=== PATIENT | male | born 1965 | race Caucasian/White ===

== ENCOUNTER 2020-01-21 07:14 | Outpatient (CLI) | payer OTHER, SELFPAY ==
[2020-01-21 07:50] LABS: Hemoglobin A1C 5.6 % (<5.7)
[2020-01-21 08:29] LABS: Alanine Aminotransferase 48 U/L (16-63); Alkaline Phosphatase 42 U/L (46-116); Anion Gap 12.2 mmol/L (7-16); Aspartate Amino Transferase 34 U/L (15-37); Bilirubin,Total 0.7 mg/dL (0.00-1.00); Blood Urea Nitrogen 15 mg/dL (7-18); Calcium 9.2 mg/dL (8.5-10.1); Carbon Dioxide 30 mmol/L (21-32); Chloride 105 mmol/L (98-108); Cholesterol 153 mg/dL (0-200); Estimated Glomerular Filt Rate 60; Glucose 105 mg/dL (70-99); HDL Direct 26 mg/dL (40-60); LDL Cholesterol Calculated 97 mg/dL (<130); Osmolality Calculated 296 mOsm/kg (285-295); Potassium 4.2 mmol/L (3.5-5.1); Sodium 143 mmol/L (136-145); Triglycerides 148 mg/dL (0-150)
== END 2020-01-21 07:15 | disposition home or self-care (01) ==
PROVIDERS: PCP Family Medicine; Visit Provider Family Medicine
DX: E88.81 Metabolic syndrome and other insulin resistance (principal); E78.1 Pure hyperglyceridemia; Z13.220 Encounter for screening for lipoid disorders
CPT/HCPCS: 36415; 80053; 80061; 83036

== ENCOUNTER 2021-09-01 11:08 | Outpatient (CLI) | payer OTHER, SELFPAY ==
[2021-09-01 12:31] LABS: SARS-CoV-2 RNA PCR Positive (Negative)
== END 2021-09-01 11:09 | disposition home or self-care (01) ==
LOC: CHSLAB 11:10
PROVIDERS: PCP Family Medicine; Visit Provider Family Medicine
DX: U07.1 COVID-19 (principal); R68.83 Chills (without fever); R05.9 Cough, unspecified
CPT/HCPCS: C9803; U0003; U0005

== ENCOUNTER → 2021-10-03 12:41 | Outpatient (CLI) | payer OTHER, SELFPAY ==
--- NOTE | ~2021-10-03 | US_ITS ---
EXAMINATION: US abdomen limited EXAM DATE: 10/03/2021 13:03 INDICATION: R74.8 - Abnormal levels of other serum enzymes . TECHNIQUE: Multiple grayscale and Doppler images of the abdomen right upper quadrant were obtained (b y a technologist who performed the scan) and subsequently reviewed. There is no prior study for meño lópez. FINDINGS: The pancreatic head and body are normal in appearance. The pancreatic tail is not visualized. There is echogenic liver parenchyma with poor penetration, hepatic steatosis. There are no focal liver le sions identified. There is no evidence of intrahepatic biliary duct dilation. Portal venous flow w as seen in the hepatopedal, normal direction and has normal Doppler waveform. No right-sided hydrone phrosis. Common bile duct measures 4 mm, which is normal. The gallbladder wall is normal in thickness, with ex pected amount of distention. No sonographic evidence of pericholecystic fluid. Several gallbladder polyps suspected, largest measuring 8 mm. Technologist performing exam reports patient did not demon strate sonographic Wilson's sign. Please note that this sign is less reliable in patients who have r eceived pain medication. IMPRESSION: 1. Hepatic steatosis. 2. Gallbladder polyps; consider 6-12 month follow-up ultrasound. Reviewed, dictated and finalized at location A. [employer]ING SUPERVISOR
== END ==
PROVIDERS: PCP Family Medicine; Visit Provider Family Medicine
DX: R74.8 Abnormal levels of other serum enzymes (principal); K76.0 Fatty (change of) liver, not elsewhere classified; K82.4 Cholesterolosis of gallbladder
CPT/HCPCS: 76705

== ENCOUNTER 2022-09-03 05:58 | Day surgery (SDC) | payer OTHER, SELFPAY ==
[2022-08-20 10:06] VITALS: BMI 27.8
[2022-09-03 06:15] VITALS: BP 138/109; PULSE 78; RESP 16; TEMP 37.1; O2SAT 97
[2022-09-03] MEDS: LACTATED RINGERS 1,000 ML 150 ML IV CONT (06:25)
[2022-09-03 06:33] LABS: Glucose Point of Care 141 mg/dl (65-105)
--- NOTE | 2022-09-03 07:15 | P.PNAN_ITS ---
Anes - Initial Pre Proc Eval Procedure: Operation Date: 09/03/22 07:30 Proposed Procedures p Screening Colonoscopy - Olvin Gracia MD Date/Time: 09/03/22 07:15 Surgeon: Olvin Gracia MD Pre Op Diagnosis: Neoplasm Screening and Family HX Colon Cancer Patient Data Age: 57 Gender: M Height: 1.83 m Weight: 95.7 kg Allergies Allergy/AdvReac Type Severity Reaction Status Date / Time No Known Allergies Allergy Mild Verified 09/03/22 06:20 Home Medications Medication Instructions Recorded Confirmed Type metformin 500 mg tablet,extended 500 mg PO DAILY #90 tabs 12/22/21 09/03/22 Rx release 24 hr lisinopril 10 See Rx Instructions .Route 02/28/22 09/03/22 Rx mg-hydrochlorothiazide 12.5 mg .COMPLEX #90 tabs tablet rosuvastatin 5 mg tablet (Crestor) 5 mg PO .q hs #90 tabs 04/20/22 09/03/22 Rx metoprolol succinate 50 mg See Rx Instructions .Route 06/26/22 09/03/22 Rx tablet,extended release 24 hr .COMPLEX #90 tabs sodium,potassium,mag sulfates 17.5 See Rx Instructions PO .COMPLEX 07/10/22 09/03/22 Rx gram-3.13 gram-1.6 gram oral soln #354 mL (Suprep Bowel Prep Kit) Laboratory Tests 09/03/22 06:30 POC Capillary Glucose 141 mg/dl H mg/dl (65-105) Patient hx anesthesia problems: none Family hx anesthesia problems: none Results Review: All pre-operative results and documents have been reviewed as part of the pre- operative evaluation. [facility] Past Medical History Medical History Hepatic steatosis Migraine variant without intractability Overweight (BMI 25.0-29.9) Post-traumatic urethral stricture, male, meatal Surgical History Surgical History (Updated 09/03/22 @ 07:16 by Armani Virk MD) H/O colonoscopy Family History Family History Mother Patient's mother is , Onset Age: 69 Other Diabetes mellitus Family history of cardiovascular disease Malignant neoplasm of prostate Social History Social History Smoking status: Never smoker Alcohol intake: unknown Substance use: never Substance use type: does not use Living arrangements: with family Spiritual care concerns: No Anes - Eval Final PreProcedure Day of Procedure 09/03/22 07:15 Patient weight: overweight Heart: regular rate and rhythm Lungs: clear to auscultation Airway: Mallampati scale class II Neurological: alert and oriented Last oral intake: >/= 8 hours ASA classification: III Emergent: no Anesthetic plan: proceed Anesthesia type and monitoring: general GIVS and standard monitoring Results Review: All pre-operative results and documents have been reviewed as part of the pre- operative evaluation. Informed Consent: The patient's anesthetic plan and its attendant risks and benefits were discussed with the patient/family/POA. Questions were solicited and answers provided to the satisfaction of the patient/family/POA.
--- NOTE | 2022-09-03 07:29 | PM.HPGS ---
History of Present Illness History of Present Illness Consent: Risks, benefits, and alternatives have been discussed and questions answered. Patient agrees to proceed with procedure. Chief complaint: Neoplasm Screening and Family HX Colon Cancer Narrative: Matt Johnson is a 57 year old male Presents for screening colonoscopy. Patient's family history is significant his father had colon cancer. Patient reports that his current weight appetite and bowel movements are normal. Patient denies abdominal pain. He has had no bleeding. Previous colonoscopy 5 years ago was unremarkable. Review of Systems Review of Systems: Review of systems is noncontributory. [facility] Past Medical History Medical History Hepatic steatosis Migraine variant without intractability Overweight (BMI 25.0-29.9) Post-traumatic urethral stricture, male, meatal Surgical History Surgical History (Updated 09/03/22 @ 07:16 by Armani Virk MD) H/O colonoscopy Family History Family History Mother Patient's mother is , Onset Age: 69 Other Diabetes mellitus Family history of cardiovascular disease Malignant neoplasm of prostate Social History Social History Smoking status: Never smoker Alcohol intake: unknown Substance use: never Substance use type: does not use Living arrangements: with family Spiritual care concerns: No Meds Home Medications and Allergies Home Medications Medication Instructions Recorded Confirmed Type metformin 500 mg tablet,extended 500 mg PO DAILY #90 tabs 12/22/21 09/03/22 Rx release 24 hr lisinopril 10 See Rx Instructions .Route 02/28/22 09/03/22 Rx mg-hydrochlorothiazide 12.5 mg .COMPLEX #90 tabs tablet rosuvastatin 5 mg tablet (Crestor) 5 mg PO .q hs #90 tabs 04/20/22 09/03/22 Rx metoprolol succinate 50 mg See Rx Instructions .Route 06/26/22 09/03/22 Rx tablet,extended release 24 hr .COMPLEX #90 tabs sodium,potassium,mag sulfates 17.5 See Rx Instructions PO .COMPLEX 07/10/22 09/03/22 Rx gram-3.13 gram-1.6 gram oral soln #354 mL (Suprep Bowel Prep Kit) Allergies Allergy/AdvReac Type Severity Reaction Status Date / Time No Known Allergies Allergy Mild Verified 09/03/22 06:20 Vital Signs Vital Signs - 24 hr 09/03/22 06:15 Temperature 98.8 F Pulse Rate 78 Respiratory Rate 16 Blood Pressure 138/109 H Pulse Oximetry 97 Oxygen Delivery Room Air Exam Narrative: Physical exam reveals patient to be alert. Vital signs stable. HEENT exam is unremarkable. Patient is anicteric. Lungs are clear to auscultation and percussion. Heart is without murmur or extra sounds. Abdomen bowel sounds are present soft nontender with no organomegaly. Digital external rectal exam is normal. Assessment and Plan Assessment and plan (1) Family hx of colon cancer: Code(s): Z80.0 - Family history of malignant neoplasm of digestive organs Status: Acute Assessment and Plan: Patient's family history is significant his father had colon cancer. Plan for surveillance colonoscopy now and consider this at 5 year intervals in the future.
[2022-09-03 07:54] VITALS: BP 116/90; PULSE 71; RESP 16; O2SAT 97
[2022-09-03 08:04] VITALS: BP 119/82; PULSE 71; RESP 18; O2SAT 100
[2022-09-03 08:14] VITALS: BP 125/85; PULSE 72; RESP 20; O2SAT 100
--- NOTE | 2022-09-03 08:43 | WPDANESPN ---
Anes - Prog Note Post-Op Date/Time: 09/03/22 08:43 Cardiovascular status: normal Respiratory status: normal Airway patency: baseline Mental status: baseline Post-Op hydration status: normal Vital Signs: Last Vital Signs Temp 37.1 C 09/03/22 06:15 Pulse 72 09/03/22 08:14 Resp 20 09/03/22 08:14 BP 125/85 09/03/22 08:14 Pulse Ox 100 09/03/22 08:14 O2 Del Method Room Air 09/03/22 08:14 Pain Score (VAS): 0/10 I/O: Intake & Output 09/02/22 09/03/22 09/03/22 23:59 07:59 15:59 Intake Total 400 Balance 400 09/03/22 06:30 POC Capillary Glucose 141 H Patient Feedback: Patient satisfied with anesthetic care.
== END 2022-09-03 08:26 | disposition home or self-care (01) ==
PROVIDERS: PCP Family Medicine; Visit Provider Internal Medicine Gastroenterology
PROC: 0DJD8ZZ Inspection of Lower Intestinal Tract, Via Natural or Artificial Opening Endoscopic (ICD-10-PCS; CPT 45378; principal; 2022-09-03 07:30)
DX: Z80.0 Family history of malignant neoplasm of digestive organs (principal)
CPT/HCPCS: 45380

== ENCOUNTER 2022-09-03 07:00 | Outpatient (NON) | payer OTHER, SELFPAY | END 2022-09-03 07:01 | disposition home or self-care (01) | LOC: ANHLAB 09-04 12:42 | PROVIDERS: PCP Family Medicine; Visit Provider Internal Medicine Gastroenterology | DX: Z12.11 Encounter for screening for malignant neoplasm of colon (principal) | CPT/HCPCS: 88305 ==

== ENCOUNTER 2024-09-07 00:32 | Day surgery (SDC) | payer OTHER, SELFPAY ==
[2024-09-04 12:36] VITALS: BMI 27.1
[2024-09-07] VITALS (14 sets, daily range): BP systolic 110–146; BP diastolic 70–92; PULSE 53–63; RESP 12–17; TEMP 36.8; O2SAT 92–97; BMI 27.0
[2024-09-07 07:40] LABS: Basophils Absolute Auto 0.1 K/mm3 (0.0-0.1); Basophils Percent Auto 1.3 % (0.2-1.2); Eosinophils Absolute Auto 0.1 K/mm3 (0-0.3); Eosinophils Percent Auto 1.7 % (0-4.4); Hematocrit 51.1 % (42.0-52.0); Hemoglobin 17.8 g/dL (14.0-18.0); Immature Granulocyte Absolute 0.01 K/mm3 (0.00-0.031); Immature Granulocyte Percent A 0.2 % (0-0.5); Immature Platelet Fraction Pct 3.2 % (0.9-11.2); Lymphocytes Absolute Auto 1.49 K/mm3 (0.9-3.2); Lymphocytes Percent Auto 31.8 % (18.3-44.2); Mean Corpuscular HGB Conc 34.8 g/dl (32-36); Mean Corpuscular Hemoglobin 33.6 pg (26-34); Mean Corpuscular Volume 96.4 fl (80-100); Monocytes Absolute Auto 0.5 K/mm3 (0.1-0.6); Monocytes Percent Auto 10.7 % (2.6-8.5); Neutrophils Absolute Auto 2.6 K/mm3 (1.3-6.7); Neutrophils Percent Auto 54.3 % (45.5-73.1); Platelet Count Result 127 k/mm3 (150-375); Red Cell Distribution Width 11.9 % (11.5-14.5); White Blood Count 4.7 K/mm3 (4.5-10.0)
[2024-09-07 08:38] LABS: Anion Gap 7 mmol/L (4-12); Blood Urea Nitrogen 14 mg/dL (9-20); Calcium 9.1 mg/dL (8.4-10.2); Carbon Dioxide 30 mmol/L (22-30); Chloride 101 mmol/L (98-107); Estimated CRCL calculation 90 ml/min; Estimated Glomerular Filt Rate > 60; Glucose 125 mg/dL (65-110); Potassium 4.1 mmol/L (3.4-5.0); Sodium 138 mmol/L (137-145)
--- NOTE | 2024-09-07 09:32 | WPDHPUPDATE1 ---
History and Physical Update Update Date/Time: 09/07/24 09:32 History and Physical has been reviewed, including an updated exam of the patient. There are NO changes in the patient's condition. Risks, benefits, and alternatives have been discussed and questions answered. Patient agrees to proceed with procedure.
--- NOTE | 2024-09-07 09:32 | WPDMODSED ---
Moderate Sedation Note-Pt Data Patient Data Allergies Allergy/AdvReac Type Severity Reaction Status Date / Time No Known Allergies Allergy Mild Verified 09/07/24 07:22 Home Medications Medication Instructions Recorded Confirmed Type metformin 500 mg tablet,extended 1,000 mg PO BID #360 tabs 05/07/24 09/04/24 Rx release 24 hr lisinopril 10 1 tablet PO DAILY #90 tabs 05/19/24 09/04/24 Rx mg-hydrochlorothiazide 12.5 mg tablet rosuvastatin 5 mg tablet 5 mg PO .q hs #90 tabs 08/07/24 09/04/24 Rx metoprolol succinate 50 mg See Rx Instructions .Route 08/12/24 09/04/24 Rx tablet,extended release 24 hr .COMPLEX #90 tabs multivitamin 1 tablet PO DAILY 09/04/24 09/04/24 History omega-3 fatty acids-fish oil 300 1 cap PO DAILY 09/04/24 09/04/24 History mg-1,000 mg capsule Sedation/Anesthesia: No previous sedation/anesthesia problems (including family history). [facility] Past Medical History Medical History Colon polyps Hepatic steatosis Migraine variant without intractability Overweight (BMI 25.0-29.9) Post-traumatic urethral stricture, male, meatal Surgical History Surgical History H/O colonoscopy Family History Family History Mother Patient's mother is , Onset Age: 69 Other Diabetes mellitus Family history of cardiovascular disease Malignant neoplasm of prostate Social History Social History Smoking status: Never smoker Alcohol intake: unknown Substance use: never Substance use type: does not use Lack of Transportation: No Lack of Food: Never True Current Housing: I Have Housing Concerned About Future Housing: No Difficulty Paying Gas/Electric Bills: No Difficulty Paying for Meds: No Currently Unemployed: No Education: Bachelor's Degree Difficulty w/ Childcare or Family Care: No Living arrangements: with family Spiritual care concerns: No Mod Sed Physical Exam Physical Exam Pre Procedural Exam: Normal: Lungs and Heart Rhythm Hours since solid foods: 12 Hours since liquid intake: 12 Mallampati Classification: class II Internal Medicine - PN: Obj Da Vital Signs Vital Signs: Vital Signs - 24 hr 09/07/24 07:23 Temperature 36.8 C Pulse Rate 59 L Respiratory Rate 16 Blood Pressure 134/84 Pulse Oximetry 97 Oxygen Delivery Room Air Labs 09/07/24 07:22 09/07/24 08:08 Labs: Laboratory Results - last 24 hr 09/07/24 09/07/24 07:22 08:08 WBC 4.7 RBC 5.30 Hgb 17.8 Hct 51.1 MCV 96.4 MCH 33.6 MCHC 34.8 RDW 11.9 Plt Count 127 L MPV 10.0 Immature Gran % (Auto) 0.2 Neut % (Auto) 54.3 Lymph % (Auto) 31.8 Hayes % (Auto) 10.7 H Eos % (Auto) 1.7 Baso % (Auto) 1.3 H Lymph # (Auto) 1.49 Hayes # (Auto) 0.5 Eos # (Auto) 0.1 Baso # (Auto) 0.1 Abs Immat Gran (auto) 0.01 Absolute Neuts (auto) 2.6 Absolute Nucleated RBC 0.000 Nucleated RBC % 0.0 % Immature Plt Fraction 3.2 Sodium 138 Potassium 4.1 Chloride 101 Carbon Dioxide 30 Anion Gap 7 BUN 14 Creatinine 0.90 Estim Creat Clear Calc 90 Estimated GFR > 60 Glucose 125 H Calcium 9.1 ASA Classification/Sedation ASA Classification/Sedation ASA Class: III Emergent: No Risks: Risks, benefits and alternatives explained and patient/family accepted plan for sedation. Patient re-evaluated immediately prior to sedation.
--- NOTE | 2024-09-07 09:34 | P.PCNCC_ITS ---
Cardiac Cath Procedure Note Date of procedure:: 09/07/24 Performing physician:: CATHETERIZATION LABORATORY REPORT Procedure Date:09/07/2024 Referring Physician: Dr. Patel Anesthesia: Versed and Fentanyl were ordered and given in my presence at 0905, procedure ended at 0923. Supervision of nurse, Shawn Montes monitored moderate sedation with 2mg Versed and 50mcg Fentanyl was provided for 18 minutes. Pre-op Diagnosis: Abnormal Stress Test Post-op Diagnosis: Abnormal Stress Test Procedure(s): Left heart catheterization with coronary angiography Access Site: Right radial artery. TR band for hemostasis Brief History and Clinical Indications: All risks, benefits and alternatives to left heart catheterization with or without percutaneous coronary intervention was discussed at length with the patient. Risk of complications including but not limited to bleeding, infection, arrhythmia, stroke, worsening kidney function, blood loss, groin hematoma, limb loss, emergency coronary artery bypass grafting, and even were discussed with the patient and all questions were answered. The patient understood and wished to proceed. Time out called, patient name, date of , medical record number, allergies, procedure performed, identify [employer] Operator, patient and staff member concurred with accurate data, procedure carried on. Findings: LEFT HEART CATHETERIZATION FINDINGS: 1. Left main: The left main coronary artery is widely patent without any significant obstructive disease. 2. Left anterior descending: The LAD and the diagonal branches have mild luminal irregularities without any significant obstructive angiographic disease. 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 3. Left circumflex: The left circumflex artery and the main marginal branches are normal. 4. Right coronary artery: The RCA is the dominant vessel and normal. 5. Left ventricle: A. End-diastolic pressure 35 mmHg. B. LV gram deferred. C. No significant gradient across aortic valve on catheter pullback. 6. Opening AO pressure 129/90 and closing AO pressure 119/86 Description of Procedure: Informed consent signed and placed in the chart. Patient transferred to manager cardiac cath room. Prepped and draped in usual sterile fashion. 2% lidocaine injected subcutaneously in right wrist area. 22-gauge venipuncture catheter used to access the right radial artery with the Seldinger technique. 6-FR slender sheath placed in right radial artery. Nitroglycerin 200mcg, Verapamil 2.5mg, and Heparin 5000U was given intraarterial through the sheath. J wire advanced under fluoroscopy 5F TIG diagnostic catheter engaged Left Main Coronary Artery. 5F TIG diagnostic catheter engaged Right Coronary Artery Multiple orthogonal angiogram obtained and reviewed 5F Pigtail diagnostic catheter crossed aortic valve to obtain LVEDP, LV angiogram deferred. Hemostasis was achieved by application of TR band. Assessment: Luminal irregularities of LAD Mild mid LAD myocardial bridge Post Operative Condition: Stable No significant blood loss Disposition: Home Plan: Abnormal stress test not related to epicardial coronary vessel disease. Continue aggressive medical therapy and risk factor modification. [facility] Interventional Cardiology
[2024-09-07] MEDS: ACETAMINOPHEN 325 MG TABLET 650 MG PO (12:21)
== END 2024-09-07 12:56 | disposition home or self-care (01) ==
PROVIDERS: PCP Family Medicine; Visit Provider Internal Medicine
PROC: 4A023N7 Measurement of Cardiac Sampling and Pressure, Left Heart, Percutaneous Approach (ICD-10-PCS; CPT 93452; principal; 2024-09-07 08:30)
DX: I25.10 Atherosclerotic heart disease of native coronary artery without angina pectoris (principal); Q24.5 Malformation of coronary vessels; R94.39 Abnormal result of other cardiovascular function study; Z79.84 Long term (current) use of oral hypoglycemic drugs
CPT/HCPCS: 36415; 80048; 85025; 85055; 93458; A9270; C1769; C1887; C1894; J1644; J2003; J2250; J2305; J3010; J7040